=== PATIENT | female | born 1955 | race Caucasian/White ===

== ENCOUNTER 2021-01-07 09:03 | Observation (INO) ==
[~2021-01-07 09:03] MED LIST: Buffered Lidocaine 1% SYRIN 1 ml INTRADERM ONE; Famotidine IV 10 MG/ML 2 ml VIAL (20 mg) IV ONE; Lactated Ringers 1000 ml BAG 1,000 ML IV SCH
[2021-01-07] MEDS ORDERED: fentaNYL 250 mcg/5 ml 50 MCG/ML 5 ml VIAL (250 MCG) ONE (09:16)
[2021-01-07] MEDS ORDERED: Midazolam 2 mg/2 ml VIAL 1 mg/ml 2 ml VIAL (2 mg) ONE (09:16)
[2021-01-07] MEDS ORDERED: Rocuronium 50 mg VIAL 10 mg/ml 5 ml VIAL (50 mg) ONE ×3 (09:16→13:47)
[2021-01-07] MEDS ORDERED: Lidocaine 2% PF 5 ML VIAL ONE (09:17)
[2021-01-07] MEDS ORDERED: Propofol 10 MG/ML 20 ML BTL ONE (09:17)
[2021-01-07] MEDS ORDERED: ceFAZolin 2 GM PREMIX 2 GM/50 ML BAG ONE (09:23)
[2021-01-07] MEDS ORDERED: Famotidine IV 10 MG/ML 2 ml VIAL (20 mg) ONE (09:23)
[2021-01-07] MEDS ORDERED: Lidocaine 1% w EPI 1:200,000 SDV 30 ML VIAL ONE (09:45)
[2021-01-07] MEDS ORDERED: Bacitracin INJECTION 50,000 UNITS ONE ×2 (09:46→13:48)
[2021-01-07] MEDS ORDERED: Bupivacaine 0.25% SDV 30 ML ONE (09:46)
[2021-01-07] MEDS ORDERED: Dexamethasone IV 4 MG/ML VIAL 1 ml VIAL ONE (11:41)
[2021-01-07] MEDS ORDERED: EPHEDrine (Pressors) 50 MG/ML VIAL ONE (11:50)
[2021-01-07] MEDS ORDERED: Ondansetron 4 mg VIAL 2 MG/ML 2 ml VIAL ONE ×2 (12:41→15:35)
[2021-01-07] MEDS ORDERED: Acetaminophen IV 1 GM/100ML 100 ML ONE (12:41)
[2021-01-07] MEDS ORDERED: HYDROmorphone 1 MG/1 ML SYRINGE ONE (13:55)
[2021-01-07] MEDS ORDERED: Ondansetron 4 mg VIAL 2 MG/ML 2 ml VIAL IV PRN ×2 (16:08→16:09)
[2021-01-07] MEDS ORDERED: Magnesium Hydroxide LIQ 30 ML UDC PO PRN (16:08)
[2021-01-07] MEDS ORDERED: HYDROcodone/ACETAMIN 5/325 mg TAB PO PRN (16:08)
[2021-01-07] MEDS ORDERED: Naloxone 0.4 mg VIAL 0.4 mg/ml 1 ml VIAL IV PRN (16:09)
[2021-01-07] MEDS ORDERED: fentaNYL 100 mcg/2 ml 50 MCG/ML VIAL IV PRN (16:09)
[2021-01-07] MEDS: VARENICLINE 0.5 MG TAB(NF) PO SCH (20:41)
[2021-01-08] MEDS: HYDROcodone/ACETAMIN 5/325 mg TAB PO PRN ×3 (01:29→13:49)
[2021-01-08] MEDS: VARENICLINE 0.5 MG TAB(NF) PO SCH (07:34)
[2021-01-08 11:37] VITALS: BP 103/57
== END 2021-01-08 14:40 | disposition home or self-care (01) ==
LOC: OR 09:03 → INTOOBSV 16:08 → SSU 16:08
PROVIDERS: ADMIT Neurological Surgery; ATTEND Neurological Surgery